=== PATIENT | male | born 1975 | race Caucasian/White ===

== ENCOUNTER 2019-02-22 16:48 | Emergency (ER) | payer MEDICAID ==
[~2019-02-22] VITALS: Ht 185.4 cm; Wt 81.8 kg
[2019-02-22 17:03] VITALS: BP 133/80
[2019-02-22] MEDS ORDERED: LIDOcaine 1% w/epiNEPHrine 1:200,000 30ml vial IM ONE (17:10)
[2019-02-22] MEDS ORDERED: LIDOcaine/epinephrine TOPICAL 5 ML BTL TOP ONE (17:10)
[2019-02-22] MEDS ORDERED: LEVO500T89 PO (18:10)
[2019-02-22] MEDS ORDERED: HYDR-4353 PO (18:11)
== END 2019-02-22 19:17 | disposition home or self-care (01) ==
LOC: ER 16:49
DX: L02.612 Cutaneous abscess of left foot (principal); Z88.0 Allergy status to penicillin; Z79.899 Other long term (current) drug therapy
CPT/HCPCS: 10060; 73630; 93005; 99283

== ENCOUNTER 2022-09-17 20:04 | Emergency (ER) | payer MEDICAID ==
[~2022-09-17] VITALS: Ht 185.4 cm; Wt 81.8 kg
[2022-09-17 20:20] VITALS: BP 130/72
== END 2022-09-17 21:06 | disposition home or self-care (01) ==
LOC: ER 20:05
DX: Z88.0 Allergy status to penicillin; F17.200 Nicotine dependence, unspecified, uncomplicated
CPT/HCPCS: 74176; 99284

== ENCOUNTER 2022-11-19 15:20 | Emergency (ER) | payer MEDICAID ==
[~2022-11-19] VITALS: Ht 185.4 cm; Wt 84.1 kg
[2022-11-19 15:31] VITALS: BP 100/58
[2022-11-20] MEDS ORDERED: BUDE180A INH (10:46)
[2022-11-20] MEDS ORDERED: ALBU6.7H14 INH (10:46)
[2022-11-20] MEDS ORDERED: DEXA6TAB PO (10:46)
== END 2022-11-20 06:38 | disposition left against medical advice (07) ==
LOC: ER 15:21
DX: R51.9 Headache, unspecified (principal); Z53.21 Procedure and treatment not carried out due to patient leaving prior to being seen by health care provider
CPT/HCPCS: 99281

== ENCOUNTER 2022-11-20 09:35 | Emergency (ER) | payer MEDICAID ==
[~2022-11-20] VITALS: Ht 185.4 cm; Wt 84.1 kg
[2022-11-20] MEDS ORDERED: dexamethasone sod phosphate 10mg/ml inj PO STA (10:39)
[2022-11-20] MEDS ORDERED: ALBU6.7H14 INH (10:46)
[2022-11-20] MEDS ORDERED: BUDE180A INH (10:46)
[2022-11-20] MEDS ORDERED: DEXA6TAB PO (10:46)
[2022-11-20 11:22] VITALS: BP 116/60
== END 2022-11-20 11:44 | disposition home or self-care (01) ==
LOC: ER 09:36
DX: B34.9 Viral infection, unspecified (principal); Z20.822 Contact with and (suspected) exposure to COVID-19; R51.9 Headache, unspecified; R07.89 Other chest pain; R05.9 Cough, unspecified; F17.200 Nicotine dependence, unspecified, uncomplicated; Z72.89 Other problems related to lifestyle; Z88.0 Allergy status to penicillin; Z79.899 Other long term (current) drug therapy
CPT/HCPCS: 71045; 87811; 99284; J1100; J3490; 99283

== ENCOUNTER 2023-06-02 09:04 | Emergency (ER) | payer MEDICAID ==
[~2023-06-02] VITALS: Ht 185.4 cm; Wt 480.0 kg
[~2023-06-02 09:04] MED LIST: ALBU6.7H14 INH; BUDE180A INH; DEXA6TAB PO
[2023-06-02 09:17] VITALS: BP 134/87; PULSE 101; RESP 19; TEMP 97.9; O2SAT 96
== END 2023-06-02 09:36 | disposition home or self-care (01) ==
LOC: ER 09:04
DX: Z02.89 Encounter for other administrative examinations (principal); Z72.89 Other problems related to lifestyle; Z88.0 Allergy status to penicillin; Z79.899 Other long term (current) drug therapy
CPT/HCPCS: 99281

== ENCOUNTER 2023-10-06 20:38 | Emergency (ER) | payer MEDICAID ==
[~2023-10-06] VITALS: Ht 185.4 cm; Wt 93.0 kg
[2023-10-06 20:40] VITALS: BP 148/82; TEMP 98
[2023-10-06 21:10] LABS: BASOPHILS # (AUTO) 0.1 X10'3 (0-0.2); BASOPHILS % (AUTO) 0.9 % (0-1); EOSINOPHILS # (AUTO) 0.4 X10'3 (0-0.9); EOSINOPHILS % (AUTO) 3.3 % (0-6); HEMATOCRIT 39.5 % (42.0-52.0); HEMOGLOBIN 13.7 g/dl (14.0-17.9); LYMPHOCYTES # (AUTO) 2.8 X10'3 (1.1-4.8); LYMPHOCYTES % (AUTO) 21.6 % (21-51); MEAN CORPUSCULAR HGB CONC 34.6 g/dL (33.0-36.5); MEAN CORPUSCULAR VOLUME 89.6 FL (78-98); MEAN PLATELET VOLUME 6.4 FL (7.4-10.4); MONOCYTES # (AUTO) 0.9 X10'3 (0-0.9); MONOCYTES % (AUTO) 6.6 % (2-12); NEUTROPHILS # (AUTO) 8.8 X10'3 (1.8-7.7); NEUTROPHILS % (AUTO) 67.6 % (42-75); PLATELET COUNT 355 X10'3 (140-440); RED CELL DISTRIBUTION WIDTH 13.1 % (11.5-14.5); WHITE BLOOD COUNT 13.1 X10'3 (4.5-11.0)
[2023-10-06] MEDS ORDERED: pantoprazole 40 MG vial IV ONE (21:10)
[2023-10-06] MEDS: diazepam 5mg tablet PO ONE (21:10)
[2023-10-06 21:25] LABS: ALANINE AMINOTRANSFERASE 39 U/L (12-78); ALBUMIN 3.8 G/DL (3.4-5.0); ALBUMIN/GLOBULIN RATIO 0.9 (1.1-1.5); ALKALINE PHOSPHATASE 75 IU/L (46-116); ANION GAP 8 (8-16); ASPARTATE AMINO TRANSFERASE 33 U/L (10-37); BILIRUBIN,TOTAL 0.2 MG/DL (0.1-1.0); BLOOD UREA NITROGEN 20 MG/DL (7-18); BUN/CREATININE RATIO 17.9 (10.0-20.0); CALCIUM 9.6 MG/DL (8.5-10.1); CHLORIDE 103 MMOL/L (99-107); CREATININE 1.12 MG/DL (0.60-1.10); GLUCOSE 103 MG/DL (70-104); POTASSIUM 3.9 MMOL/L (3.5-5.1); SODIUM 140 MMOL/L (135-145); TOTAL CARBON DIOXIDE 28.8 MMOL/L (24-32); eCRCL 90 ML/MIN; eGFR 70 ML/MIN
[2023-10-06] MEDS: pantoprazole 40 MG vial IV ONE (21:26)
[2023-10-06] MEDS: diazepam inj 5 MG/ML inj. IV ONE (21:26)
[2023-10-06] MEDS: normal saline 1000ml 1,000 ML IV ONE ×2 (21:26→21:57)
[2023-10-06] MEDS: ondansetron/PF 4mg/2ml inj IV ONE (21:26)
[2023-10-06 21:29] LABS: CREATINE KINASE 197 U/L (39-308); ETHANOL < 10 MG/DL (<10); MAGNESIUM 1.8 MG/DL (1.5-2.4); SALICYLATE 4.3 MG/DL (4.0-20.0)
[2023-10-06 21:33] LABS: ACETAMINOPHEN < 2.0 UG/ML (10-30)
[2023-10-06] MEDS: diphenhydrAMINE 50 mg/ml inj IV ONE (22:15)
[2023-10-06] MEDS: haloperidol lactate 5mg/ml inj IM ONE (22:16)
[2023-10-06 23:25] LABS: URINE AMPHETAMINE SCREEN NEGATIVE (Neg); URINE BARBITUATE SCREEN NEGATIVE (Neg); URINE BENZODIAZEPINES SCREEN POSITIVE (Neg); URINE CANNABINOID SCREEN NEGATIVE (Neg); URINE COCAINE SCREEN NEGATIVE (Neg); URINE METHADONE SCREEN NEGATIVE (Neg); URINE OPIATE SCREEN NEGATIVE (Neg); URINE PHENCYCLIDINE SCREEN NEGATIVE (Neg)
[2023-10-06 23:53] VITALS: PULSE 98
[2023-10-07 01:21] VITALS: RESP 18; O2SAT 98
== END 2023-10-07 01:25 | disposition left against medical advice (07) ==
LOC: ER 20:38
DX: T50.7X1A Poisoning by analeptics and opioid receptor antagonists, accidental (unintentional), initial encounter (principal); T43.221A Poisoning by selective serotonin reuptake inhibitors, accidental (unintentional), initial encounter; R11.2 Nausea with vomiting, unspecified; Y92.89 Other specified places as the place of occurrence of the external cause
CPT/HCPCS: 36415; 80053; 80305; 80320; 80329; 82550; 83605; 83735; 84484; 85025; 93005; 96361; 96372; 96374; 96375; 99284; C9113; J1200; J1630; J2405; J3360; J7030